=== PATIENT | male | born 1970 | race Caucasian/White ===

== ENCOUNTER 2021-11-01 07:38 | Outpatient (CLI) | payer OTHER | END 2021-11-01 23:59 | disposition home or self-care (01) | LOC: RAD 07:38 | PROVIDERS: ATTEND Chiropractor | DX: M41.86 Other forms of scoliosis, lumbar region (principal); M12.88 Other specific arthropathies, not elsewhere classified, other specified site; M13.80 Other specified arthritis, unspecified site | CPT/HCPCS: 72100; 73620 ==